=== PATIENT | female | born 1985 | race Asian ===

== ENCOUNTER 2017-05-08 00:24 | Inpatient (IN) | payer SELFPAY ==
[~2017-05-08] VITALS: Ht 163 cm; Wt 68.0 kg
[2017-05-08] MEDS ORDERED: IRON65TA11 PO (00:39)
[2017-05-08] MEDS ORDERED: PREN1SGL25 PO (00:39)
[2017-05-08] MEDS ORDERED: OXYTOCIN 20 UNITS/LR PREMIX 1,000 ML IV PRN ×2 (00:40→11:08)
[2017-05-08] MEDS ORDERED: NALBUPHINE HYDROCHLORIDE 10 MG/ML VIAL IVP PRN (00:40)
[2017-05-08] MEDS ORDERED: LACTATED RINGERS 1,000 ML IV SCH (00:40)
[2017-05-08] MEDS ORDERED: PROMETHAZINE 25 MG/ML VIAL IVP PRN (00:40)
[2017-05-08] MEDS ORDERED: MISOPROSTOL 25 MCG TAB VG PRN (00:45)
[2017-05-08] MEDS ORDERED: METHYLERGONOVINE 0.2 MG/ML AMP IM PRN (00:50)
[2017-05-08] MEDS ORDERED: CARBOPROST 250 MCG/ML AMP IM PRN (00:50)
[2017-05-08 01:10] LABS: BASOPHILS # (AUTO) 0.1 K/uL (0.00-0.22); BASOPHILS % (AUTO) 1.1 % (0.0-2.0); EOSINOPHILS # (AUTO) 0.2 K/uL (0-0.4); EOSINOPHILS % (AUTO) 2.6 % (0.0-4.0); HEMATOCRIT 38.3 % (36-48); HEMOGLOBIN 12.6 g/dL (12.0-16.0); LYMPHOCYTES # (AUTO) 1.5 K/uL (2.5-16.5); LYMPHOCYTES % (AUTO) 25.3 % (20.5-51.1); MEAN CORPUSCULAR HEMOGLOBIN 30 pg (27-31); MEAN CORPUSCULAR HGB CONC 33 g/dL (33-37); MEAN CORPUSCULAR VOLUME 92 fL (80-94); MONOCYTES # (AUTO) 0.5 K/uL (0.8-1.0); MONOCYTES % (AUTO) 8.5 % (1.7-9.3); NEUTROPHILS # (AUTO) 3.7 K/uL (1.8-7.7); NEUTROPHILS % (AUTO) 62.5 % (42.2-75.2); PLATELET COUNT (AUTO) 131 K/uL (140-450); RED BLOOD CELL COUNT(AUTO) 4.17 MIL/uL (4.20-5.40); RED CELL DISTRIBUTION WIDTH 13.9 % (11.6-13.7)
[2017-05-08 01:45] LABS: APPEARANCE,URINE CLEAR (CLEAR); BILIRUBIN,URINE NEGATIVE (NEGATIVE); BLOOD, URINE NEGATIVE (NEGATIVE); COLOR,URINE YELLOW (YELLOW); LEUKOCYTE ESTERASE ,URINE NEGATIVE (NEGATIVE); NITRITE, URINE NEGATIVE (NEGATIVE); PROTEIN,URINE NEGATIVE (NEGATIVE); UGLUCOSE NEGATIVE (NEGATIVE); UROBILINOGEN,URINE 0.2 EU/dL (0.2 - 1)
[2017-05-08] MEDS ORDERED: MISOPROSTOL 25 MCG TAB ONE (01:49)
[2017-05-08 01:57] VITALS: BP 132/78
[2017-05-08 02:45] LABS: BACTERIA,URINE RARE /HPF (None Seen); RBC,URINE NONE SEEN /HPF (0-5); SQUAMOUS EPITHELIAL CELL,UR 0-3 (FEW) /LPF (0-3 (FEW)); WBC,URINE 0-5 (RARE) /HPF (0-5)
[2017-05-08] MEDS ORDERED: ROPIVACAINE 0.2%/NS PREMIX 250 ML EPI ONE (05:29)
[2017-05-08] MEDS ORDERED: OXYTOCIN 20 UNITS/LR PREMIX 1,000 ML IV ONE (05:54)
--- NOTE | 2017-05-08 08:28 | NUR ---
PATIENT HAS BEEN SCREENED AND CATEGORIZED LOW NUTRITION RISK. PATIENT WILL BE SEEN WITHIN 7 DAYS OF ADMISSION. 05/14/[address]
[2017-05-08] MEDS ORDERED: AMPICILLIN 2,000 MG in NACL 0.9% 100 ML IV SCH (11:39)
[2017-05-08] MEDS ORDERED: AMPICILLIN 2,000 MG VIAL ONE (11:45)
[2017-05-08] MEDS ORDERED: OXYTOCIN 10 UNITS/ML VIAL ONE (12:57)
[2017-05-08] MEDS ORDERED: AMPICILLIN 1,000 MG in NACL 0.9% 50 ML IV SCH (16:00)
[2017-05-08] MEDS ORDERED: AMPICILLIN 1,000 MG VIAL ONE (16:59)
[2017-05-08] MEDS ORDERED: IBUPROFEN 800 MG TAB PO PRN (18:45)
[2017-05-08] MEDS ORDERED: HYDROcodone/APAP 5/325 MG 1 TAB TAB PO PRN (18:45)
[2017-05-08] MEDS ORDERED: WITCH HAZEL 40 PAD PACKAGE TP PRN (18:45)
[2017-05-08] MEDS ORDERED: oxyCODONE/APAP 5/325 MG 1 TAB TAB PO PRN (18:45)
[2017-05-08] MEDS ORDERED: TEMAZEPAM 15 MG CAP PO PRN (18:45)
[2017-05-08] MEDS ORDERED: BENZOCAINE/MENTHOL 20%-0.5% 60 GM CAN TP PRN (18:45)
[2017-05-08] MEDS ORDERED: ACETAMINOPHEN 325 MG TAB PO PRN (19:20)
[2017-05-08] MEDS ORDERED: ACETAMINOPHEN 325 MG TAB ONE (19:23)
[2017-05-08] MEDS ORDERED: ceFAZolin 1,000 MG VIAL ONE (19:39)
[2017-05-08] MEDS ORDERED: DOCUSATE SOD/SENNA 50/8.6 MG 1 TAB PO SCH (21:00)
[2017-05-09] MEDS ORDERED: ceFAZolin 1,000 MG VIAL ONE (04:07)
[2017-05-09 07:04] LABS: HEMATOCRIT 35.5 % (36-48); HEMOGLOBIN 11.8 g/dL (12.0-16.0)
== END 2017-05-10 14:20 | disposition home or self-care (01) | DRG 774 ==
LOC: MLD 00:24 → MFCC 05-09 01:25
PROVIDERS: ADMIT Obstetrics & Gynecology; ATTEND Obstetrics & Gynecology
PROC: 10E0XZZ Delivery of Products of Conception, External Approach (ICD-10-PCS; principal; 2017-05-08)
PROC: 10907ZC Drainage of Amniotic Fluid, Therapeutic from Products of Conception, Via Natural or Artificial Opening (ICD-10-PCS; 2017-05-08)
PROC: 3E0P7GC Introduction of Other Therapeutic Substance into Female Reproductive, Via Natural or Artificial Opening (ICD-10-PCS; 2017-05-08)
PROC: 0W8NXZZ Division of Female Perineum, External Approach (ICD-10-PCS; 2017-05-08)
PROC: 00HU33Z Insertion of Infusion Device into Spinal Canal, Percutaneous Approach (ICD-10-PCS; 2017-05-08)
PROC: 3E0R3CZ (ICD-10-PCS; 2017-05-08)
DX: O24.92 Unspecified diabetes mellitus in childbirth (principal); O89.4 Spinal and epidural anesthesia-induced headache during the puerperium; Z3A.40 40 weeks gestation of pregnancy; Z37.0 Single live birth; Z23 Encounter for immunization
CPT/HCPCS: 36415; 51702; 59200; 81001; 85018; 85025; 86592; 86886; 86900; 86901; J0290; J0690; J2590; J2795; J7030; J7060; J7120